=== PATIENT | female | born 1990 | race Caucasian/White ===

== ENCOUNTER 2018-04-27 10:28 | Emergency (ER) | payer SELFPAY ==
[~2018-04-27] VITALS: Ht 157.5 cm; Wt 90.7 kg
[2018-04-27 10:55] VITALS: BP 144/81
[2018-04-27 11:41] LABS: INFLUENZA A PATIENT NEGATIVE (NEGATIVE); INFLUENZA B PATIENT NEGATIVE (NEGATIVE)
--- NOTE | 2018-04-27 12:11 | PHYS DOC ---
Past Medical History Past Medical History: Diabetes-Type II, Other Additional Past Medical Histor: PCOS, GOUT Past Surgical History: No Surgical History Alcohol Use: None Drug Use: None Adult General Chief Complaint Chief Complaint: COUGH HPI HPI Patient is a 28 year old [f__sex] who presents with [] Review of Systems Review of Systems Constitutional: Denies fever or chills [] Eyes: Denies change in visual acuity, redness, or eye pain [] HENT: Denies nasal congestion or sore throat [] Respiratory: Denies cough or shortness of breath [] Cardiovascular: No additional information not addressed in HPI [] GI: Denies abdominal pain, nausea, vomiting, bloody stools or diarrhea [] : Denies dysuria or hematuria [] Musculoskeletal: Denies back pain or joint pain [] Integument: Denies rash or skin lesions [] Neurologic: Denies headache, focal weakness or sensory changes [] Endocrine: Denies polyuria or polydipsia [] All other systems were reviewed and found to be within normal limits, except as documented in this note. Allergies Allergies Allergies Coded Allergies Type Severity Reaction Last Updated Verified No Known Drug Allergies 04/27/18 No Physical Exam Physical Exam Constitutional: Well developed, well nourished, no acute distress, non-toxic appearance. [] HENT: Normocephalic, atraumatic, bilateral external ears normal, oropharynx moist, no oral exudates, nose normal. [] Eyes: PERRLA, EOMI, conjunctiva normal, no discharge. [] Neck: Normal range of motion, no tenderness, supple, no stridor. [] Cardiovascular:Heart rate regular rhythm, no murmur [] Lungs & Thorax: Bilateral breath sounds clear to auscultation [] Abdomen: Bowel sounds normal, soft, no tenderness, no masses, no pulsatile masses. [] Skin: Warm, dry, no erythema, no rash. [] Back: No tenderness, no CVA tenderness. [] Extremities: No tenderness, no cyanosis, no clubbing, ROM intact, no edema. [] Neurologic: Alert and oriented X 3, normal motor function, normal sensory function, no focal deficits noted. [] Psychologic: Affect normal, judgement normal, mood normal. [] Current Patient Data Vital Signs Vital Signs Date Time Temp Pulse Resp B/P (MAP) Pulse Ox O2 Delivery O2 Flow Rate FiO2 11/26/18 10:55 98.0 85 16 144/81 (102) 95 Room Air 98.0 Lab Values Laboratory Tests Test 04/27/18 11:00 Influenza Type A Antigen Negative (NEGATIVE) Influenza Type B Antigen Negative (NEGATIVE) Group A Streptococcus Rapid Negative (NEGATIVE) EKG EKG [] Radiology/Procedures Radiology/Procedures [] Course & Med Decision Making Course & Med Decision Making Pertinent Labs and Imaging studies reviewed. (See chart for details) [] Dragon Disclaimer Dragon Disclaimer This electronic medical record was generated, in whole or in part, using a voice recognition dictation system. Departure Departure Impression: Primary Impression: Upper respiratory infection Disposition: HOME, SELF-CARE Condition: STABLE Referrals: NO PCP (PCP) Patient Instructions: Upper Respiratory Infection, Adult Additional Instructions: Take [id number] cough and cold medication to relieve her symptoms. Increase fluids and rest. Follow-up with your primary care provider if not improving in 4 days or return to the emergency department if worsening. REGINA CARDOZA [employer] OPERATOR Apr 27, 2018 12:11
== END 2018-04-27 12:17 | disposition home or self-care (01) ==
LOC: ER 10:28
DX: J06.9 Acute upper respiratory infection, unspecified (principal); E11.9 Type 2 diabetes mellitus without complications
CPT/HCPCS: 82962; 87070; 87804; 87880; 99283

== ENCOUNTER 2018-05-10 12:46 | Emergency (ER) | payer SELFPAY ==
[~2018-05-10] VITALS: Ht 165.1 cm; Wt 90.7 kg
[2018-05-10] MEDS ORDERED: IV NORMAL SALINE 1000ML BAG 1,000 ML IV ONE (13:15)
[2018-05-10] MEDS ORDERED: KETOROLAC 15 MG/ML VIAL. IV ONE (13:15)
[2018-05-10] MEDS ORDERED: FAMOTIDINE 20 MG/2 ML VIAL IVP ONE (13:15)
[2018-05-10 13:19] LABS: BASO # 0.1 x10^3/uL (0.0-0.2); BASO % 1 % (0-3); EOS # 0.3 x10^3/uL (0.0-0.7); EOS % 4 % (0-3); HEMATOCRIT 43.4 % (36.0-47.0); LYMPH # 1.8 x10^3/uL (1.0-4.8); LYMPH % 23 % (24-48); MEAN CORPUSCULAR HEMOGLOBIN 30 pg (25-35); MEAN CORPUSCULAR HGB CONC 35 g/dL (31-37); MEAN CORPUSCULAR VOLUME 87 fL (79-100); MONO # 0.3 x10^3/uL (0.0-1.1); MONO % 4 % (0-9); NEUT # 5.3 x10^3uL (1.8-7.7); NEUT % 68 % (31-73); PLATELET COUNT 266 x10^3/uL (140-400); RED BLOOD COUNT 4.97 x10^6/uL (3.50-5.40); RED CELL DISTRIBUTION WIDTH 12.6 % (11.5-14.5); WHITE BLOOD COUNT 7.8 x10^3/uL (4.0-11.0)
[2018-05-10 13:27] LABS: CALCIUM 8.9 mg/dL (8.5-10.1); CREATININE 0.8 mg/dL (0.6-1.0); POTASSIUM 4.1 mmol/L (3.5-5.1)
--- NOTE | 2018-05-10 13:28 | PHYS DOC ---
Past Medical History Past Medical History: Diabetes-Type II, Other Additional Past Medical Histor: PCOS, GOUT, ruptured ovarian cyst (right) Past Surgical History: No Surgical History Alcohol Use: None Drug Use: None Adult General Chief Complaint Chief Complaint: ABDOMINAL PAIN HPI HPI This is a 28-year-old female with a history PCOS presenting with RLQ sharp abdominal pain that began abruptly 1 hour ago. Patient states she became nauseous and vomited at the same time her abdominal pain began. She states she has had similar symptoms in the past when she had a right ovarian cyst rupture about a year ago, however her symptoms today are more severe. Her abdominal pain is aggravated by palpation and jarring movements. Patient denies fevers, diarrhea, constipation, vaginal bleeding/discharge, dysuria, hematuria or bloody /dark stools. Review of Systems Review of Systems Constitutional: Denies fever or chills [] Respiratory: Denies cough or shortness of breath [] Cardiovascular: Denies chest pain, palpitations GI: Reports RLQ abdominal pain, nausea, vomiting; Denies bloody/dark stools, constipation or diarrhea [] : Denies vaginal bleeding/discharge, dysuria or hematuria [] Musculoskeletal: Denies back pain or joint pain [] Integument: Denies rash or skin lesions [] Neurologic: Denies headache, focal weakness or sensory changes [] Complete systems were reviewed and found to be within normal limits, except as documented in this note. Current Medications Current Medications Current Medications Medications (Trade) Dose Ordered Sig/Yomi Start Time Stop Time Status Last Admin Dose Admin Acetaminophen/ Hydrocodone Bitart (Lortab 5/325) 1 tab 1X ONCE 05/10/18 17:00 05/10/18 17:01 UNV Famotidine (Pepcid Vial) 20 mg 1X ONCE 05/10/18 13:15 05/10/18 13:16 DC 05/10/18 13:19 20 MG Fentanyl Citrate (Fentanyl 2ml Vial) 50 mcg 1X ONCE 05/10/18 14:15 05/10/18 14:16 DC 05/10/18 14:46 50 MCG Ketorolac Tromethamine (Toradol 15mg Vial) 15 mg 1X ONCE 05/10/18 13:15 05/10/18 13:16 DC 05/10/18 13:20 15 MG Sodium Chloride 1,000 ml @ 1,000 mls/hr 1X ONCE 05/10/18 13:15 05/10/18 14:14 DC 05/10/18 13:20 1,000 MLS/HR Allergies Allergies Allergies Coded Allergies Type Severity Reaction Last Updated Verified No Known Drug Allergies 04/27/18 No Physical Exam Physical Exam Constitutional: Well developed, well nourished, no acute distress, afebrile, non -toxic appearance. [] HENT: Normocephalic, atraumatic Eyes: PERRLA, EOMI, conjunctiva normal, no discharge. [] Neck: Normal range of motion, no tenderness, supple, no stridor. [] Cardiovascular: Heart rate regular rhythm, no murmur [] Lungs & Thorax: Bilateral breath sounds clear to auscultation [] Abdomen: Bowel sounds normal, soft, mild RLQ tenderness, no rebound tenderness, negative Escamilla sign, negative Rovsing sign, no masses. [] Skin: Warm, dry, no erythema, no rash. [] Back: No tenderness, no CVA tenderness. [] Extremities: No tenderness, no cyanosis, no clubbing, ROM intact, no edema. [] Neurologic: Alert and oriented x3, normal motor function, normal sensory function, no focal deficits noted. [] Psychologic: Affect normal, judgement normal, mood normal. [] Current Patient Data Vital Signs Vital Signs Date Time Temp Pulse Resp B/P (MAP) Pulse Ox O2 Delivery O2 Flow Rate FiO2 05/10/18 16:00 78 17 129/79 (96) 98 Room Air 05/10/18 12:57 98.0 98.0 Lab Values Laboratory Tests Test 05/10/18 13:05 05/10/18 13:15 POC Urine HCG, Qualitative Hcg negative (Negative) White Blood Count 7.8 x10^3/uL (4.0-11.0) Red Blood Count 4.97 x10^6/uL (3.50-5.40) Hemoglobin 15.0 g/dL (12.0-15.5) Hematocrit 43.4 % (36.0-47.0) Mean Corpuscular Volume 87 fL (79-100) Mean Corpuscular Hemoglobin 30 pg (25-35) Mean Corpuscular Hemoglobin Concent 35 g/dL (31-37) Red Cell Distribution Width 12.6 % (11.5-14.5) Platelet Count 266 x10^3/uL (140-400) Neutrophils (%) (Auto) 68 % (31-73) Lymphocytes (%) (Auto) 23 % (24-48) L Monocytes (%) (Auto) 4 % (0-9) Eosinophils (%) (Auto) 4 % (0-3) H Basophils (%) (Auto) 1 % (0-3) Neutrophils # (Auto) 5.3 x10^3uL (1.8-7.7) Lymphocytes # (Auto) 1.8 x10^3/uL (1.0-4.8) Monocytes # (Auto) 0.3 x10^3/uL (0.0-1.1) Eosinophils # (Auto) 0.3 x10^3/uL (0.0-0.7) Basophils # (Auto) 0.1 x10^3/uL (0.0-0.2) Sodium Level 137 mmol/L (136-145) Potassium Level 4.1 mmol/L (3.5-5.1) Chloride Level 101 mmol/L (98-107) Carbon Dioxide Level 22 mmol/L (21-32) Anion Gap 14 (6-14) Blood Urea Nitrogen 15 mg/dL (7-20) Creatinine 0.8 mg/dL (0.6-1.0) Estimated GFR (Cockcroft-Gault) 86.0 BUN/Creatinine Ratio 19 (6-20) Glucose Level 293 mg/dL (70-99) H Calcium Level 8.9 mg/dL (8.5-10.1) Magnesium Level 1.4 mg/dL (1.8-2.4) L Total Bilirubin 0.3 mg/dL (0.2-1.0) Aspartate Amino Transferase (AST) 34 U/L (15-37) Alanine Aminotransferase (ALT) 46 U/L (14-59) Alkaline Phosphatase 57 U/L (46-116) Total Protein 7.9 g/dL (6.4-8.2) Albumin 3.7 g/dL (3.4-5.0) Albumin/Globulin Ratio 0.9 (1.0-1.7) L Lipase 155 U/L (73-393) Laboratory Tests 05/10/18 13:15 Laboratory Tests 05/10/18 13:15 EKG EKG [] Radiology/Procedures Radiology/Procedures PROCEDURE: PELVIS ULTRASOUND Complete pelvic ultrasound HISTORY: Right adnexal pain, torsion. TECHNIQUE: Transabdominal transducer with grayscale and duplex Doppler sonography was utilized. FINDINGS: Anteverted uterus measures 9.7 x 3.9 x 5.3 cm. No uterine mass documented. Endometrium thickness is 1.1 cm. No pelvic fluid. Right ovary measures 2.4 x 2.7 x 1.8 cm, left ovary measures 2.5 x 2.3 x 2.3 cm. No ovarian or paraovarian cysts or masses documented. There is intact bilateral ovarian blood flow documented by duplex Doppler sonography. No evidence of ovarian torsion. IMPRESSION: Normal exam. Electronically signed by: Alexx Hidalgo MD (05/10/2018 4:34 PM) [facility] Course & Med Decision Making Course & Med Decision Making Pertinent Labs and Imaging studies reviewed. (See chart for details) This is a 28 yo F with a history of PCOS with ruptured right ovarian cyst, presenting to the ED with right pelvic pain. Pt's history and exam findings more consistent with pelvic etiology vs abdominal etiology. Pt has had multiple CT scan in the past, will proceed to evaluate with TVUS. However, cannot 100% rule out appendicitis so advised pt to return if sxs worsen and/or fever develops to reevaluate with CT scan. Dragon Disclaimer Dragon Disclaimer This electronic medical record was generated, in whole or in part, using a voice recognition dictation system. Departure Departure Impression: Primary Impression: Pelvic pain Disposition: 01 HOME, SELF-CARE Condition: STABLE Referrals: NO PCP (PCP) Patient Instructions: Pelvic Pain, Female, [id number] Scripts Hydrocodone/Apap 5-325 (NORCO 5-325 TABLET) 1 Each Tablet 1 TAB PO PRN Q8HRS PRN for PAIN, #10 TAB 0 Refills Prov: JEREMIAS HUGGINS DO 05/10/18 JEREMIAS HUGGINS DO May 10, 2018 13:28
[2018-05-10 13:33] LABS: ALBUMIN 3.7 g/dL (3.4-5.0); ALBUMIN/GLOBULIN RATIO 0.9 (1.0-1.7); MAGNESIUM 1.4 mg/dL (1.8-2.4); TOTAL BILIRUBIN 0.3 mg/dL (0.2-1.0); TOTAL PROTEIN 7.9 g/dL (6.4-8.2)
[2018-05-10] MEDS ORDERED: fentaNYL PF VIAL 100 MCG/2 ML VIAL IV ONE (14:15)
--- NOTE | 2018-05-10 16:38 | RAD ---
Complete pelvic ultrasound HISTORY: Right adnexal pain, torsion. TECHNIQUE: Transabdominal transducer with grayscale and duplex Doppler sonography was utilized. FINDINGS: Anteverted uterus measures 9.7 x 3.9 x 5.3 cm. No uterine mass documented. Endometrium thickness is 1.1 cm. No pelvic fluid. Right ovary measures 2.4 x 2.7 x 1.8 cm, left ovary measures 2.5 x 2.3 x 2.3 cm. No ovarian or paraovarian cysts or masses documented. There is intact bilateral ovarian blood flow documented by duplex Doppler sonography. No evidence of ovarian torsion. IMPRESSION: Normal exam. Electronically signed by: Alexx Hidalgo MD (05/10/2018 4:34 PM) [facility]
[2018-05-10] MEDS ORDERED: HYDR-3164 PO (16:52)
[2018-05-10 16:55] VITALS: BP 162/105
[2018-05-10] MEDS ORDERED: HYDROcodone/APAP 5/325MG 1 TAB TABLET PO ONE (17:00)
== END 2018-05-10 17:05 | disposition home or self-care (01) ==
LOC: ER 12:46
DX: R10.2 Pelvic and perineal pain (principal); R10.31 Right lower quadrant pain; R11.2 Nausea with vomiting, unspecified; E11.9 Type 2 diabetes mellitus without complications; E28.2 Polycystic ovarian syndrome
CPT/HCPCS: 36415; 76856; 80053; 81025; 83690; 83735; 85025; 96361; 96374; 96375; 99284; J1885; J3010; J3490; J7030

== ENCOUNTER 2018-06-05 14:06 | Emergency (ER) | payer SELFPAY ==
[~2018-06-05] VITALS: Ht 157.5 cm; Wt 90.7 kg
[~2018-06-05 14:06] MED LIST: HYDR-3164 PO
[2018-06-05] MEDS ORDERED: METF10007 PO (14:26)
--- NOTE | 2018-06-05 14:28 | PHYS DOC ---
Past Medical History Past Medical History: Diabetes-Type II, Other Additional Past Medical Histor: PCOS, GOUT, ruptured ovarian cyst (right) Past Surgical History: No Surgical History Alcohol Use: None Drug Use: None Adult General Chief Complaint Chief Complaint: BLOOD SUGAR PROBLEM [facility] Patient is a 28 year old female who presents with elevated blood glucose. The patient states that she moved to this area approximately 1-2 months ago. She states that she when she was living in [place] she did not have insurance that they were giving her metformin out of the emergency department. She has not taken the medication for several months. She is worried that her blood sugars are elevated again. When she had done an Accu-Chek at home it was around 300. Review of Systems Review of Systems Constitutional: Denies fever or chills [] Eyes: Denies change in visual acuity, redness, or eye pain [] HENT: Denies nasal congestion or sore throat [] Respiratory: Denies cough or shortness of breath [] Cardiovascular: No additional information not addressed in HPI [] GI: Denies abdominal pain, nausea, vomiting, bloody stools or diarrhea [] : Denies dysuria or hematuria [] Musculoskeletal: Denies back pain or joint pain [] Integument: Denies rash or skin lesions [] Neurologic: Denies headache, focal weakness or sensory changes [] Endocrine: Denies polyuria or polydipsia [] All other systems were reviewed and found to be within normal limits, except as documented in this note. Allergies Allergies Allergies Coded Allergies Type Severity Reaction Last Updated Verified No Known Drug Allergies 04/27/18 No Physical Exam Physical Exam Constitutional: Well developed, obese, no acute distress, non-toxic appearance. [] Cardiovascular:Heart rate regular rhythm, no murmur [] Lungs & Thorax: Bilateral breath sounds clear to auscultation [] Abdomen: Bowel sounds normal, soft, no tenderness, no masses, no pulsatile masses. [] Skin: Warm, dry, no erythema, no rash. [] Back: No tenderness, no CVA tenderness. [] Extremities: No tenderness, no cyanosis, no clubbing, ROM intact, no edema. [] Neurologic: Alert and oriented X 3, normal motor function, normal sensory function, no focal deficits noted. [] Psychologic: Affect normal, judgement normal, mood normal. [] EKG EKG [] Radiology/Procedures Radiology/Procedures [] Course & Med Decision Making Course & Med Decision Making Pertinent Labs and Imaging studies reviewed. (See chart for details) []The patient and I discussed the need for restarting her metformin. I did explain that we have free clinics that we can give her resources for follow-up. She states that she does have money to fill her metformin prescription today. She is in agreement with this plan. Dragon Disclaimer Dragon Disclaimer This electronic medical record was generated, in whole or in part, using a voice recognition dictation system. Departure Departure Impression: Primary Impression: Type 2 diabetes mellitus Disposition: HOME, SELF-CARE Condition: STABLE Referrals: NO PCP (PCP) Patient Instructions: 1800 Calorie Diet for Diabetes Meal Planning, Diabetes and Foot Care Additional Instructions: Take 1 metformin tablet at night with food for 5 days. Then increased her dosage. This should help lessen GI upset. Follow-up with a clinic for further evaluation and treatment of your diabetes. If worsening return to the emergency department. Scripts Metformin Hcl (METFORMIN HCL) 1,000 Mg Tablet 1000 MG PO BIDWMEALS for diabetes for 30 Days, #60 TAB Prov: REGINA CARDOZA APRN 06/05/18 REGINA CARDOZA APRN Jun 05, 2018 14:28
[2018-06-05 15:05] VITALS: BP 127/83
== END 2018-06-05 15:05 | disposition home or self-care (01) ==
LOC: ER 14:06
DX: E11.65 Type 2 diabetes mellitus with hyperglycemia (principal); E66.9 Obesity, unspecified; Z68.36 Body mass index [BMI] 36.0-36.9, adult
CPT/HCPCS: 82962; 99283

== ENCOUNTER 2018-06-12 08:27 | Emergency (ER) | payer SELFPAY ==
[~2018-06-12] VITALS: Ht 157.5 cm; Wt 90.7 kg
[~2018-06-12 08:27] MED LIST changes: +METF10007 PO
[2018-06-12] MEDS ORDERED: ONDANSETRON PF 4 MG/2 ML VIAL. IV ONE (08:45)
[2018-06-12] MEDS ORDERED: IV NORMAL SALINE 1000ML BAG 1,000 ML IV ONE (08:45)
[2018-06-12] MEDS ORDERED: FAMOTIDINE 20 MG/2 ML VIAL IVP ONE (08:45)
--- NOTE | 2018-06-12 08:48 | PHYS DOC ---
Past Medical History Past Medical History: Diabetes-Type II, Other Additional Past Medical Histor: PCOS, GOUT, ruptured ovarian cyst (right), HEART MURMUR Past Surgical History: Other Additional Past Surgical Histo: BILAT MYRINGOTOMY W/TUBES Alcohol Use: None Drug Use: None Adult General Chief Complaint Chief Complaint: NAUSEA/VOMITING/DIARRHA HPI HPI Patient is a 28 year old female with history of diabetes type 2 who presents today complaining of nausea, vomiting and diarrhea that began yesterday. Patient denies any hematemesis or melena. Denies any fever. Patient states she was seen in the ED on June 05, 2018 for refill of her metformin but did put her on 2000 mg a day which she's never taken it. Patient states she took first 2 doses of metformin yesterday and the day before, she states her symptoms began yesterday. Patient states she has mild bilateral upper abdominal pain. Review of Systems Review of Systems Constitutional: Denies fever or chills [] Eyes: Denies change in visual acuity, redness, or eye pain [] HENT: Denies nasal congestion or sore throat [] Respiratory: Denies cough or shortness of breath [] Cardiovascular: No additional information not addressed in HPI [] GI: Reports abdominal pain nausea vomiting and diarrhea : Denies dysuria or hematuria [] Musculoskeletal: Denies back pain or joint pain [] Integument: Denies rash or skin lesions [] Neurologic: Denies headache, focal weakness or sensory changes [] All other systems were reviewed and found to be within normal limits, except as documented in this note. Current Medications Current Medications Current Medications Medications (Trade) Dose Ordered Sig/Yomi Start Time Stop Time Status Last Admin Dose Admin Famotidine (Pepcid Vial) 20 mg 1X ONCE 06/12/18 08:45 06/12/18 08:57 DC 06/12/18 10:04 20 MG Fentanyl Citrate (Fentanyl 2ml Vial) 50 mcg 1X ONCE 06/12/18 10:15 06/12/18 10:16 DC 06/12/18 10:46 50 MCG Ondansetron HCl (Zofran) 4 mg 1X ONCE 06/12/18 08:45 06/12/18 08:57 DC 06/12/18 10:02 4 MG Sodium Chloride 1,000 ml @ 1,000 mls/hr 1X ONCE 06/12/18 08:45 06/12/18 09:44 DC 06/12/18 10:03 1,000 MLS/HR Allergies Allergies Allergies Coded Allergies Type Severity Reaction Last Updated Verified morphine Allergy Intermediate 06/05/18 Yes Physical Exam Physical Exam Constitutional: Well developed, well nourished, no acute distress, non-toxic appearance. [] HENT: Normocephalic, atraumatic, bilateral external ears normal, oropharynx moist, no oral exudates, nose normal. [] Eyes: PERRLA, EOMI, conjunctiva normal, no discharge. [] Neck: Normal range of motion, no tenderness, supple, no stridor. [] Cardiovascular:Heart rate regular rhythm, no murmur [] Lungs & Thorax: Bilateral breath sounds clear to auscultation [] Abdomen: Bowel sounds normal, soft, no tenderness, no masses, no pulsatile masses. [] Skin: Warm, dry, no erythema, no rash. [] Back: No tenderness, no CVA tenderness. [] Extremities: No tenderness, no cyanosis, no clubbing, ROM intact, no edema. [] Neurologic: Alert and oriented X 3, normal motor function, normal sensory function, no focal deficits noted. [] Psychologic: Affect normal, judgement normal, mood normal. [] Current Patient Data Vital Signs Vital Signs Date Time Temp Pulse Resp B/P (MAP) Pulse Ox O2 Delivery O2 Flow Rate FiO2 06/12/18 10:46 18 99 Room Air 06/12/18 08:35 97.8 91 147/79 (101) 97.8 Lab Values Laboratory Tests Test 06/12/18 08:43 06/12/18 09:50 06/12/18 10:50 POC Urine HCG, Qualitative Hcg negative (Negative) White Blood Count 9.7 x10^3/uL (4.0-11.0) Red Blood Count 4.85 x10^6/uL (3.50-5.40) Hemoglobin 14.6 g/dL (12.0-15.5) Hematocrit 42.5 % (36.0-47.0) Mean Corpuscular Volume 88 fL (79-100) Mean Corpuscular Hemoglobin 30 pg (25-35) Mean Corpuscular Hemoglobin Concent 34 g/dL (31-37) Red Cell Distribution Width 12.9 % (11.5-14.5) Platelet Count 251 x10^3/uL (140-400) Neutrophils (%) (Auto) 59 % (31-73) Lymphocytes (%) (Auto) 30 % (24-48) Monocytes (%) (Auto) 5 % (0-9) Eosinophils (%) (Auto) 5 % (0-3) H Basophils (%) (Auto) 1 % (0-3) Neutrophils # (Auto) 5.7 x10^3uL (1.8-7.7) Lymphocytes # (Auto) 2.9 x10^3/uL (1.0-4.8) Monocytes # (Auto) 0.5 x10^3/uL (0.0-1.1) Eosinophils # (Auto) 0.5 x10^3/uL (0.0-0.7) Basophils # (Auto) 0.1 x10^3/uL (0.0-0.2) Sodium Level 138 mmol/L (136-145) Potassium Level 3.7 mmol/L (3.5-5.1) Chloride Level 102 mmol/L (98-107) Carbon Dioxide Level 24 mmol/L (21-32) Anion Gap 12 (6-14) Blood Urea Nitrogen 13 mg/dL (7-20) Creatinine 0.9 mg/dL (0.6-1.0) Estimated GFR (Cockcroft-Gault) 75.1 BUN/Creatinine Ratio 14 (6-20) Glucose Level 194 mg/dL (70-99) H Calcium Level 9.0 mg/dL (8.5-10.1) Total Bilirubin 0.3 mg/dL (0.2-1.0) Aspartate Amino Transferase (AST) 60 U/L (15-37) H Alanine Aminotransferase (ALT) 98 U/L (14-59) H Alkaline Phosphatase 47 U/L (46-116) Total Protein 7.7 g/dL (6.4-8.2) Albumin 3.5 g/dL (3.4-5.0) Albumin/Globulin Ratio 0.8 (1.0-1.7) L Lipase 304 U/L (73-393) Urine Collection Type Unknown Urine Color Yellow Urine Clarity Clear Urine pH 5.0 Urine Specific [place] >=1.030 Urine Protein Negative mg/dL (NEG-TRACE) Urine Glucose (UA) Negative mg/dL (NEG) Urine Ketones (Stick) Negative mg/dL (NEG) Urine Blood Negative (NEG) Urine Nitrite Negative (NEG) Urine Bilirubin Small (NEG) Urine Urobilinogen Dipstick 0.2 mg/dL (0.2 mg/dL) Urine Leukocyte Esterase Negative (NEG) Urine RBC 0 /HPF (0-2) Urine WBC 0 /HPF (0-4) Urine Squamous Epithelial Cells Mod /LPF Urine Bacteria 0 /HPF (0-FEW) Urine Mucus Mod /LPF Laboratory Tests 06/12/18 09:50 Laboratory Tests 06/12/18 09:50 EKG EKG [] Radiology/Procedures Radiology/Procedures []PROCEDURE: ABDOMEN LTD EXAM: Abdomen sonogram. HISTORY: Nausea and right upper quadrant pain. TECHNIQUE: Sonographic imaging of the abdomen was performed. COMPARISON: None. FINDINGS: The exam is limited due to body habitus and bowel gas. There is hepatomegaly and hepatic steatosis. No focal hepatic lesion is seen. The gallbladder is contracted, limiting evaluation. The common bile duct is normal in caliber. The right kidney is unremarkable. The pancreas, aorta and inferior vena cava are obscured. IMPRESSION: 1. Hepatomegaly and hepatic steatosis. 2. Contracted gallbladder. This is consistent with the postprandial status of the patient. This limits evaluated for gallbladder pathology. 3. Limited exam due to body habitus and bowel gas. The midline structures are obscured. Electronically signed by: Beth Ardon MD (06/12/2018 11:22 AM) [facility] DICTATED and SIGNED BY: BETH ARDON MD DATE: 06/12/181120 Course & Med Decision Making Course & Med Decision Making Pertinent Labs and Imaging studies reviewed. (See chart for details) This is a 28-year-old female patient presenting to the ED today with nausea vomiting and diarrhea that began yesterday. Also complaining of abdominal pain. She was recently started on metformin 2000 mg per day. Has history of diabetes type 2. CBC with normal WBC. CMP with AST of 60 ALT of 98, glucose 194, patient states she's been running elevated liver enzymes for long time. She states she' s been worked up but they could not find any good cause for elevated liver enzymes. Patient was given IV fluids, nausea medicine. She is feeling better. She'll be discharged with Zofran. I instructed her to cut back on her metformin to 500 mg daily and trying to diet and exercise then follow-up with the PCP in the course of next week. Instructed her to return to the ED at any point symptoms worsen. Dragon Disclaimer Dragon Disclaimer This electronic medical record was generated, in whole or in part, using a voice recognition dictation system. Departure Departure Impression: Primary Impression: Nausea & vomiting Additional Impression: Diarrhea Disposition: 01 HOME, SELF-CARE Condition: STABLE Referrals: NO PCP (PCP) BRITNEY CONLEY MD follow up in 1 week Patient Instructions: Diarrhea, Nausea and Vomiting, [id number] Additional Instructions: You were evaluated in the emergency room for nausea, vomiting and diarrhea. Please follow-up with the primary care doctor from the list provided in the course of next week. Take 500 mg metformin every day. Come back to the ED at any point symptoms worsen. Scripts Ondansetron (ONDANSETRON ODT) 4 Mg Tab.rapdis 1 TAB PO PRN Q6-8HRS, #16 TAB Prov: RADHA STRICKLAND APRN 06/12/18 Problem Qualifiers Primary Impression: Nausea & vomiting Vomiting type: unspecified Vomiting Intractability: unspecified Qualified Codes: R11.2 - Nausea with vomiting, unspecified Additional Impression: Diarrhea Diarrhea type: unspecified type Qualified Codes: R19.7 - Diarrhea, unspecified RADHA STRICKLAND APRN Jun 12, 2018 08:48
[2018-06-12 10:07] LABS: BASO # 0.1 x10^3/uL (0.0-0.2); BASO % 1 % (0-3); EOS # 0.5 x10^3/uL (0.0-0.7); EOS % 5 % (0-3); HEMATOCRIT 42.5 % (36.0-47.0); HEMOGLOBIN 14.6 g/dL (12.0-15.5); LYMPH # 2.9 x10^3/uL (1.0-4.8); LYMPH % 30 % (24-48); MEAN CORPUSCULAR HEMOGLOBIN 30 pg (25-35); MEAN CORPUSCULAR HGB CONC 34 g/dL (31-37); MEAN CORPUSCULAR VOLUME 88 fL (79-100); MONO # 0.5 x10^3/uL (0.0-1.1); MONO % 5 % (0-9); NEUT # 5.7 x10^3uL (1.8-7.7); NEUT % 59 % (31-73); PLATELET COUNT 251 x10^3/uL (140-400); RED BLOOD COUNT 4.85 x10^6/uL (3.50-5.40); RED CELL DISTRIBUTION WIDTH 12.9 % (11.5-14.5); WHITE BLOOD COUNT 9.7 x10^3/uL (4.0-11.0)
[2018-06-12 10:15] LABS: CREATININE 0.9 mg/dL (0.6-1.0); GFR 75.1; POTASSIUM 3.7 mmol/L (3.5-5.1)
[2018-06-12] MEDS ORDERED: fentaNYL PF VIAL 100 MCG/2 ML VIAL IV ONE (10:15)
[2018-06-12 10:20] LABS: ALBUMIN 3.5 g/dL (3.4-5.0); ALBUMIN/GLOBULIN RATIO 0.8 (1.0-1.7); TOTAL BILIRUBIN 0.3 mg/dL (0.2-1.0); TOTAL PROTEIN 7.7 g/dL (6.4-8.2)
[2018-06-12 11:06] LABS: BILIRUBIN,URINE SMALL (NEG); CLARITY,URINE CLEAR; COLOR,URINE YELLOW; NITRITE,URINE NEGATIVE (NEG); PROTEIN,URINE NEGATIVE (NEG-TRACE); UROBILINOGEN,URINE 0.2 mg/dL (0.2 mg/dL)
[2018-06-12 11:25] LABS: BACTERIA,URINE 0 /HPF (0-FEW); RBC,URINE 0 /HPF (0-2); SQUAMOUS EPITHELIAL CELL,UR MOD /LPF; WBC,URINE 0 /HPF (0-4)
--- NOTE | 2018-06-12 11:26 | RAD ---
EXAM: Abdomen sonogram. HISTORY: Nausea and right upper quadrant pain. TECHNIQUE: Sonographic imaging of the abdomen was performed. COMPARISON: None. FINDINGS: The exam is limited due to body habitus and bowel gas. There is hepatomegaly and hepatic steatosis. No focal hepatic lesion is seen. The gallbladder is contracted, limiting evaluation. The common bile duct is normal in caliber. The right kidney is unremarkable. The pancreas, aorta and inferior vena cava are obscured. IMPRESSION: 1. Hepatomegaly and hepatic steatosis. 2. Contracted gallbladder. This is consistent with the postprandial status of the patient. This limits evaluated for gallbladder pathology. 3. Limited exam due to body habitus and bowel gas. The midline structures are obscured. Electronically signed by: Beth Ardon MD (06/12/2018 11:22 AM) [id number]
[2018-06-12 11:35] VITALS: BP 118/66
[2018-06-12] MEDS ORDERED: ONDA4TAB12 PO (12:24)
== END 2018-06-12 12:50 | disposition home or self-care (01) ==
LOC: ER 08:27
DX: R11.2 Nausea with vomiting, unspecified (principal); R19.7 Diarrhea, unspecified; R10.11 Right upper quadrant pain; R10.12 Left upper quadrant pain; E11.9 Type 2 diabetes mellitus without complications; K76.0 Fatty (change of) liver, not elsewhere classified; K82.0 Obstruction of gallbladder; E28.2 Polycystic ovarian syndrome; Z88.5 Allergy status to narcotic agent
CPT/HCPCS: 36415; 76705; 80053; 81001; 81025; 83690; 85025; 96361; 96374; 96375; 99284; J2405; J3010; J3490; J7030

== ENCOUNTER 2018-07-07 13:57 | Emergency (ER) | payer SELFPAY ==
[~2018-07-07] VITALS: Ht 157.5 cm; Wt 90.7 kg
[~2018-07-07 13:57] MED LIST changes: +ONDA4TAB12 PO
[2018-07-07 13:59] VITALS: BP 165/98
--- NOTE | 2018-07-07 15:06 | PHYS DOC ---
Past Medical History Past Medical History: Diabetes-Type II, Other Additional Past Medical Histor: PCOS, GOUT, ruptured ovarian cyst (right), HEART MURMUR Past Surgical History: Other Additional Past Surgical Histo: BILAT MYRINGOTOMY W/TUBES Additional Information: 1 PPD Alcohol Use: None Drug Use: None Adult General Chief Complaint Chief Complaint: FOOT INJURY PAIN [facility] HPI Patient is a 28 year old female who presents to the emergency room with complaints of bilateral foot tingling and pain for the last 2 days. Patient denies any injury, redness, or warmth. She reports that she is a type II diabetic, she denies any history of diabetic neuropathy. Patient states that her blood sugar has been running in the low 200s recently however last night she did have a blood sugar that was almost 300. She denies any fever, nausea, vomiting, diarrhea, abdominal pain, shortness of breath, chest pain, or palpitations. Review of Systems Review of Systems Constitutional: Denies fever or chills [] HENT: Denies nasal congestion or sore throat [] Respiratory: Denies cough or shortness of breath [] Cardiovascular: No additional information not addressed in HPI [] GI: Denies abdominal pain, nausea, vomiting, bloody stools or diarrhea [] Musculoskeletal: See HPI Integument: Denies rash or skin lesions [] Neurologic: Denies headache or focal weakness, see HPI Endocrine: Denies polyuria or polydipsia [] Allergies Allergies Allergies Coded Allergies Type Severity Reaction Last Updated Verified morphine Allergy Intermediate 06/05/18 Yes Physical Exam Physical Exam Constitutional: Well developed, well nourished, no acute distress, non-toxic appearance. [] HENT: Normocephalic, atraumatic, bilateral external ears normal, nose normal. [] Eyes: conjunctiva normal, no discharge. [] Neck: Normal range of motion, no stridor. [] Cardiovascular:Heart rate regular rhythm, no murmur [] Lungs & Thorax: Bilateral breath sounds clear to auscultation [] Skin: Warm, dry, no erythema, no rash. [] Extremities: No tenderness, no cyanosis, no clubbing, ROM intact, no edema; decreased sensation to sensory testing of plantar surface of bilateral toes, otherwise normal sensation of plantar surface of bilateral feet [] Neurologic: Alert and oriented X 3, normal motor function, normal sensory function, no focal deficits noted. [] Psychologic: Affect normal, judgement normal, mood normal. [] Current Patient Data Vital Signs Vital Signs Date Time Temp Pulse Resp B/P (MAP) Pulse Ox O2 Delivery O2 Flow Rate FiO2 07/07/18 13:59 98.1 88 20 165/98 (120) 98 Room Air 98.1 EKG EKG [] Radiology/Procedures Radiology/Procedures [] Course & Med Decision Making Course & Med Decision Making Pertinent Labs and Imaging studies reviewed. (See chart for details) [] Dragon Disclaimer Dragon Disclaimer This electronic medical record was generated, in whole or in part, using a voice recognition dictation system. Departure Departure Impression: Primary Impression: Neuropathic pain of both feet Disposition: HOME, SELF-CARE Condition: STABLE Referrals: NO PCP (PCP) Patient Instructions: Pain, Neuropathic-Brief Additional Instructions: Follow up with your primary care doctor for further evaluation of your foot pain. Tylenol or ibuprofen as needed for pain. Return to the ER if symptoms worsen. SHERINE LYONS APRN Jul 07, 2018 15:06
== END 2018-07-07 15:19 | disposition home or self-care (01) ==
LOC: ER 13:57
DX: E11.40 Type 2 diabetes mellitus with diabetic neuropathy, unspecified (principal); M79.671 Pain in right foot; M79.672 Pain in left foot; F17.200 Nicotine dependence, unspecified, uncomplicated; Z88.5 Allergy status to narcotic agent
CPT/HCPCS: 99281

== ENCOUNTER 2018-10-09 10:54 | Emergency (ER) | payer SELFPAY ==
[~2018-10-09] VITALS: Ht 157.5 cm; Wt 90.7 kg
--- NOTE | 2018-10-09 11:26 | PHYS DOC ---
Past Medical History Past Medical History: Diabetes-Type II, Other Additional Past Medical Histor: PCOS, GOUT, ruptured ovarian cyst (right),HEART MURMUR Past Surgical History: Other Additional Past Surgical Histo: BILAT MYRINGOTOMY W/TUBES Alcohol Use: None Drug Use: None Adult General Chief Complaint Chief Complaint: ABDOMINAL PAIN HPI HPI Patient is a 28 year old female presents to the ED complaining of abdominal pain since this morning. States she woke up with right lower quadrant abdominal pain. States she had one episode of vomiting. Nonbloody, Nonbilious. Patient has a history of PCOS, diabetes and ovarian cysts. Describes her pain as sharp. Rates her pain as 7 out of 10. Denies vaginal discharge/bleeding, STD exposure, dysuria, hematuria, chest pain, shortness of breath or fever. Review of Systems Review of Systems Constitutional: Denies fever or chills [] Eyes: Denies change in visual acuity, redness, or eye pain [] HENT: Denies nasal congestion or sore throat [] Respiratory: Denies cough or shortness of breath [] Cardiovascular: No additional information not addressed in HPI [] GI: Complains of abdominal pain and vomiting. Denies bloody stools or diarrhea [] : Denies dysuria or hematuria [] Musculoskeletal: Denies back pain or joint pain [] Integument: Denies rash or skin lesions [] Neurologic: Denies headache, focal weakness or sensory changes [] All other systems were reviewed and found to be within normal limits, except as documented in this note. Current Medications Current Medications Current Medications Medications (Trade) Dose Ordered Sig/Yomi Start Time Stop Time Status Last Admin Dose Admin Info (CONTRAST GIVEN -- Rx MONITORING) 1 each PRN DAILY PRN 10/09/18 12:15 10/09/18 13:24 DC Iohexol (Omnipaque 300 Mg/ml) 75 ml 1X ONCE 10/09/18 12:15 10/09/18 12:16 DC 10/09/18 12:33 75 ML Morphine Sulfate (Morphine Sulfate) 4 mg 1X ONCE 10/09/18 11:30 10/09/18 11:33 DC 10/09/18 11:42 4 MG Ondansetron HCl (Zofran) 4 mg 1X ONCE 10/09/18 11:30 10/09/18 11:33 DC 10/09/18 11:41 4 MG Sodium Chloride 1,000 ml @ 1,000 mls/hr 1X ONCE 10/09/18 12:30 10/09/18 13:24 DC 10/09/18 12:34 1,000 MLS/HR Allergies Allergies Allergies Coded Allergies Type Severity Reaction Last Updated Verified morphine Adverse Reaction Intermediate NAUSEA/VOMITING 10/09/18 Yes Physical Exam Physical Exam Constitutional: Well developed, well nourished, no acute distress, non-toxic appearance. [] HENT: Normocephalic, atraumatic Eyes: PERRLA, EOMI, conjunctiva normal, no discharge. [] Neck: Normal range of motion, no tenderness, supple, no stridor. [] Cardiovascular:Heart rate regular rhythm, no murmur [] Lungs & Thorax: Bilateral breath sounds clear to auscultation [] Abdomen: Bowel sounds normal, soft, mild diffuse lower abdominal tenderness, no masses, no pulsatile masses. [] Skin: Warm, dry, no erythema, no rash. [] Back: No tenderness, no CVA tenderness. [] Extremities: No tenderness, no cyanosis, no clubbing, ROM intact, no edema. [] Neurologic: Alert and oriented X 3, normal motor function, normal sensory function, no focal deficits noted. [] Psychologic: Affect normal, judgement normal, mood normal. [] Current Patient Data Vital Signs Vital Signs Date Time Temp Pulse Resp B/P (MAP) Pulse Ox O2 Delivery O2 Flow Rate FiO2 10/09/18 12:31 64 20 147/88 (107) 96 Room Air 10/09/18 11:16 98.8 98.8 Lab Values Laboratory Tests Test 10/09/18 11:19 10/09/18 11:26 10/09/18 11:30 Urine Collection Type Void Urine Color Yellow Urine Clarity Clear Urine pH 5.5 Urine Specific [place] 1.025 Urine Protein Negative mg/dL (NEG-TRACE) Urine Glucose (UA) >=1000 mg/dL (NEG) Urine Ketones (Stick) Trace mg/dL (NEG) Urine Blood Negative (NEG) Urine Nitrite Negative (NEG) Urine Bilirubin Negative (NEG) Urine Urobilinogen Dipstick 1.0 mg/dL (0.2 mg/dL) Urine Leukocyte Esterase Negative (NEG) Urine RBC 0 /HPF (0-2) Urine WBC Rare /HPF (0-4) Urine Squamous Epithelial Cells Many /LPF Urine Bacteria Mod /HPF (0-FEW) Urine Mucus Mod /LPF POC Urine HCG, Qualitative Hcg negative (Negative) White Blood Count 7.9 x10^3/uL (4.0-11.0) Red Blood Count 4.80 x10^6/uL (3.50-5.40) Hemoglobin 14.0 g/dL (12.0-15.5) Hematocrit 41.8 % (36.0-47.0) Mean Corpuscular Volume 87 fL (79-100) Mean Corpuscular Hemoglobin 29 pg (25-35) Mean Corpuscular Hemoglobin Concent 33 g/dL (31-37) Red Cell Distribution Width 13.0 % (11.5-14.5) Platelet Count 231 x10^3/uL (140-400) Neutrophils (%) (Auto) 65 % (31-73) Lymphocytes (%) (Auto) 25 % (24-48) Monocytes (%) (Auto) 4 % (0-9) Eosinophils (%) (Auto) 5 % (0-3) H Basophils (%) (Auto) 1 % (0-3) Neutrophils # (Auto) 5.2 x10^3uL (1.8-7.7) Lymphocytes # (Auto) 2.0 x10^3/uL (1.0-4.8) Monocytes # (Auto) 0.3 x10^3/uL (0.0-1.1) Eosinophils # (Auto) 0.4 x10^3/uL (0.0-0.7) Basophils # (Auto) 0.1 x10^3/uL (0.0-0.2) Sodium Level 135 mmol/L (136-145) L Potassium Level 4.4 mmol/L (3.5-5.1) Chloride Level 100 mmol/L (98-107) Carbon Dioxide Level 24 mmol/L (21-32) Anion Gap 11 (6-14) Blood Urea Nitrogen 10 mg/dL (7-20) Creatinine 0.8 mg/dL (0.6-1.0) Estimated GFR (Cockcroft-Gault) 86.0 BUN/Creatinine Ratio 13 (6-20) Glucose Level 291 mg/dL (70-99) H Calcium Level 8.7 mg/dL (8.5-10.1) Total Bilirubin 0.2 mg/dL (0.2-1.0) Aspartate Amino Transferase (AST) 22 U/L (15-37) Alanine Aminotransferase (ALT) 45 U/L (14-59) Alkaline Phosphatase 48 U/L (46-116) Total Protein 7.0 g/dL (6.4-8.2) Albumin 3.4 g/dL (3.4-5.0) Albumin/Globulin Ratio 0.9 (1.0-1.7) L Lipase 183 U/L (73-393) Laboratory Tests 10/09/18 11:30 Laboratory Tests 10/09/18 11:30 EKG EKG [] Radiology/Procedures Radiology/Procedures CT ABD PELV W/ IV CONTRST ONLY Indication: Right lower quadrant tenderness. Ruptured ovarian cysts. Exposure: One or more of the following individualized dose reduction techniques were utilized for this examination: 1. Automated exposure control 2. Adjustment of the mA and/or kV according to patient size 3. Use of iterative reconstruction technique. Technique: Intravenous contrast was given. No oral contrast per request. Very mild atelectasis in the lung bases. Liver is mildly enlarged, 19.5 cm. No evidence of a mass lesion in the liver. Liver mildly hypodense, suggesting fatty infiltration. Spleen unremarkable. Pancreas demonstrates no peripancreatic fluid or inflammatory change. No adrenal mass. Kidneys demonstrate symmetric enhancement without hydronephrosis. Gallbladder contracted without evidence of a calcified stone. The aorta is of normal caliber. No significant lymph node enlargement. No significant small bowel distention. No evidence of acute colitis. The appendix is normal. No evidence of ascites or pneumoperitoneum. The urinary bladder demonstrates no significant wall thickening. Vertebral body height is intact. Mild degenerative changes. IMPRESSION: 1. Mild hepatomegaly with possible steatosis. 2. No acute findings.[] Course & Med Decision Making Course & Med Decision Making Pertinent Labs and Imaging studies reviewed. (See chart for details) []Discussed lab and imaging findings with patient. Patient's pain improved in the ED. On reexamination, abdomen is soft nontender nondistended. No peritoneal signs. Tolerating by mouth. Discussed symptomatic treatment and follow up outpatient. Provided contact information/education. Discussed reasons to return to the ED. Patient understands and agrees with plan. [place] Disclaimer Dragon Disclaimer This electronic medical record was generated, in whole or in part, using a voice recognition dictation system. Departure Departure Impression: Primary Impression: Abdominal pain Disposition: HOME, SELF-CARE Condition: IMPROVED Referrals: NO PCP (PCP) JEREMIAS PABON MD, SCOTT S MD Patient Instructions: Abdominal Pain Scripts Ondansetron Hcl (ZOFRAN) 4 Mg Tablet 1 TAB PO Q6HRS, #10 TAB Prov: JENNIFER DOMINGUEZ 10/09/18 JENNIFER DOMINGUEZ October 09, 2018 11:26
[2018-10-09] MEDS ORDERED: ONDANSETRON PF 4 MG/2 ML VIAL. IV ONE (11:30)
[2018-10-09] MEDS ORDERED: MORPHINE SULFATE 4 MG/ML VIAL. IV ONE (11:30)
[2018-10-09 11:36] LABS: BILIRUBIN,URINE NEGATIVE (NEG); CLARITY,URINE CLEAR; COLOR,URINE YELLOW; NITRITE,URINE NEGATIVE (NEG); PH,URINE 5.5; PROTEIN,URINE NEGATIVE (NEG-TRACE)
[2018-10-09 11:44] LABS: BASO # 0.1 x10^3/uL (0.0-0.2); BASO % 1 % (0-3); EOS # 0.4 x10^3/uL (0.0-0.7); EOS % 5 % (0-3); HEMATOCRIT 41.8 % (36.0-47.0); LYMPH % 25 % (24-48); MEAN CORPUSCULAR HEMOGLOBIN 29 pg (25-35); MEAN CORPUSCULAR HGB CONC 33 g/dL (31-37); MEAN CORPUSCULAR VOLUME 87 fL (79-100); MONO # 0.3 x10^3/uL (0.0-1.1); MONO % 4 % (0-9); NEUT # 5.2 x10^3uL (1.8-7.7); NEUT % 65 % (31-73); PLATELET COUNT 231 x10^3/uL (140-400); WHITE BLOOD COUNT 7.9 x10^3/uL (4.0-11.0)
[2018-10-09 11:48] LABS: BACTERIA,URINE MOD /HPF (0-FEW); SQUAMOUS EPITHELIAL CELL,UR MANY /LPF
[2018-10-09 11:49] LABS: RBC,URINE 0 /HPF (0-2); WBC,URINE RARE /HPF (0-4)
[2018-10-09 12:01] LABS: CALCIUM 8.7 mg/dL (8.5-10.1); CREATININE 0.8 mg/dL (0.6-1.0); POTASSIUM 4.4 mmol/L (3.5-5.1)
[2018-10-09 12:07] LABS: ALBUMIN 3.4 g/dL (3.4-5.0); ALBUMIN/GLOBULIN RATIO 0.9 (1.0-1.7); TOTAL BILIRUBIN 0.2 mg/dL (0.2-1.0)
[2018-10-09] MEDS ORDERED: CONTRAST GIVEN. MC PRN (12:15)
[2018-10-09] MEDS ORDERED: IOHEXOL 300 MG/ML 100ML VIAL. IV ONE (12:15)
[2018-10-09] MEDS ORDERED: IV NORMAL SALINE 1000ML BAG 1,000 ML IV ONE (12:30)
[2018-10-09 12:31] VITALS: BP 147/88
--- NOTE | 2018-10-09 12:48 | RAD ---
CT ABD PELV W/ IV CONTRST ONLY Indication: Right lower quadrant tenderness. Ruptured ovarian cysts. Exposure: One or more of the following individualized dose reduction techniques were utilized for this examination: 1. Automated exposure control 2. Adjustment of the mA and/or kV according to patient size 3. Use of iterative reconstruction technique. Technique: Intravenous contrast was given. No oral contrast per request. Very mild atelectasis in the lung bases. Liver is mildly enlarged, 19.5 cm. No evidence of a mass lesion in the liver. Liver mildly hypodense, suggesting fatty infiltration. Spleen unremarkable. Pancreas demonstrates no peripancreatic fluid or inflammatory change. No adrenal mass. Kidneys demonstrate symmetric enhancement without hydronephrosis. Gallbladder contracted without evidence of a calcified stone. The aorta is of normal caliber. No significant lymph node enlargement. No significant small bowel distention. No evidence of acute colitis. The appendix is normal. No evidence of ascites or pneumoperitoneum. The urinary bladder demonstrates no significant wall thickening. Vertebral body height is intact. Mild degenerative changes. IMPRESSION: 1. Mild hepatomegaly with possible steatosis. 2. No acute findings. Electronically signed by: Durga Moncada MD (10/09/2018 12:45 PM) [id number]
[2018-10-09] MEDS ORDERED: ONDA4TAB7 PO (13:05)
== END 2018-10-09 13:11 | disposition home or self-care (01) ==
LOC: ER 10:54
DX: R10.31 Right lower quadrant pain (principal); R10.32 Left lower quadrant pain; R11.10 Vomiting, unspecified; E11.9 Type 2 diabetes mellitus without complications; Z96.22 Myringotomy tube(s) status; Z88.5 Allergy status to narcotic agent
CPT/HCPCS: 36415; 74177; 80053; 81001; 81025; 83690; 85025; 96361; 96374; 96375; 99285; J2270; J2405; J7030; Q9967